=== PATIENT | female | born 1965 | race Caucasian/White ===

== ENCOUNTER 2017-02-17 12:51 | Emergency (ER) | payer MEDICARE, MEDICAID ==
[~2017-02-17] VITALS: Ht 180.3 cm; Wt 100.0 kg
[2017-02-17] MEDS ORDERED: KETOROLAC 30 MG/1 ML IM ONE (14:00)
[2017-02-17] MEDS ORDERED: KETOROLAC 30 MG/1 ML ONE (14:08)
[2017-02-17 14:26] LABS: BLOOD UREA NITROGEN 14 mg/dL (7-18)
[2017-02-17] MEDS ORDERED: OMNIPAQUE 350 MG/ML, 100ML BOTTLE ONE (15:29)
[2017-02-17 15:42] VITALS: BP 128/71
== END 2017-02-17 16:31 | disposition home or self-care (01) ==
LOC: ED 13:39
DX: S39.012A Strain of muscle, fascia and tendon of lower back, initial encounter (principal); M62.830 Muscle spasm of back; I10 Essential (primary) hypertension; Z86.73 Personal history of transient ischemic attack (TIA), and cerebral infarction without residual deficits; X58.XXXA Exposure to other specified factors, initial encounter; Y93.89 Activity, other specified; Y92.89 Other specified places as the place of occurrence of the external cause; Y99.9 Unspecified external cause status
CPT/HCPCS: 36415; 72110; 72193; 80048; 85025; 96372; 99285; J1885; Q9967

== ENCOUNTER 2017-09-19 16:32 | Emergency (ER) | payer MEDICARE, MEDICAID ==
[~2017-09-19] VITALS: Ht 180.3 cm; Wt 103.0 kg
[~2017-09-19 16:32] MED LIST: ASPI-515 PO; GABA600T2 PO; HYDR-3240 PO; IBUP-1223 PO; LAMO200T3 PO; LISI-167 PO; MULTIVITAMIN PO; QUET100T4 PO; SIMV40TA3 PO
[2017-09-19 17:20] LABS: HEMATOCRIT 47.1 % (34.6-47.8); HEMOGLOBIN 16.1 g/dL (11.7-16.4); WHITE BLOOD COUNT 9.2 x10^3/uL (3.4-10)
[2017-09-19 17:27] LABS: ASPARTATE AMINO TRANSFERASE 20 U/L (15-37); BLOOD UREA NITROGEN 13 mg/dL (7-18)
[2017-09-19 17:33] LABS: IS PT STATUS REG ER OR PRE ER? YES
[2017-09-19] MEDS ORDERED: KETOROLAC 30 MG/1 ML IVPush ONE (18:00)
[2017-09-19] MEDS ORDERED: METOCLOPRAMIDE 5 MG/ML, 2ML IVPush ONE (18:00)
[2017-09-19] MEDS ORDERED: SODIUM CHLORIDE 0.9% 1,000ML IVBOLUS ONE (18:00)
[2017-09-19] MEDS ORDERED: DIPHENHYDRAMINE 50 MG/ML, 1ML IVPush ONE (18:00)
[2017-09-19] MEDS ORDERED: SODIUM CHLORIDE FLUSH 10ML SYR IVF ONE (18:00)
[2017-09-19 18:44] VITALS: BP 142/76
== END 2017-09-19 19:15 | disposition home or self-care (01) ==
LOC: ED 17:40
DX: R07.89 Other chest pain (principal); G43.C0 Periodic headache syndromes in child or adult, not intractable; I10 Essential (primary) hypertension; Z90.49 Acquired absence of other specified parts of digestive tract
CPT/HCPCS: 36415; 70450; 71020; 80053; 84484; 85025; 93005; 96361; 96374; 96375; 99285; J1200; J1885; J2765; J7030

== ENCOUNTER 2017-10-02 18:09 | Emergency (ER) | payer MEDICARE, MEDICAID ==
[~2017-10-02] VITALS: Ht 180.3 cm; Wt 104.0 kg
[2017-10-02] MEDS ORDERED: MELO15TA24 PO (18:18)
[2017-10-02] MEDS ORDERED: OXYC-306 PO (18:18)
[2017-10-02] MEDS ORDERED: HYDROmorphone 1 MG/ML, 1ML IM ONE ×2 (19:00→21:30)
[2017-10-02] MEDS ORDERED: HYDROmorphone 2 MG/ML, 1ML ONE ×2 (19:01→21:12)
[2017-10-02] MEDS ORDERED: HYDROmorphone 1 MG/ML, 1ML IVPush ONE (19:30)
[2017-10-02] MEDS ORDERED: HYDROmorphone 2 MG/ML, 1ML IVPush ONE (19:30)
[2017-10-02 20:34] VITALS: BP 104/47
== END 2017-10-02 21:50 | disposition home or self-care (01) ==
LOC: ED 21:47
DX: S32.2XXA Fracture of coccyx, initial encounter for closed fracture (principal); S32.19XA Other fracture of sacrum, initial encounter for closed fracture; I10 Essential (primary) hypertension; Z86.73 Personal history of transient ischemic attack (TIA), and cerebral infarction without residual deficits; W01.0XXA Fall on same level from slipping, tripping and stumbling without subsequent striking against object, initial encounter; Y93.89 Activity, other specified; Y92.89 Other specified places as the place of occurrence of the external cause; Y99.9 Unspecified external cause status
CPT/HCPCS: 72110; 72220; 96374; 99284; J1170

== ENCOUNTER 2018-01-08 19:09 | Emergency (ER) | payer MEDICARE, MEDICAID ==
[~2018-01-08] VITALS: Ht 177.8 cm; Wt 101.6 kg
[~2018-01-08 19:09] MED LIST changes: +MELO15TA24 PO; +OXYC-306 PO
[2018-01-08] MEDS ORDERED: KETOROLAC 30 MG/1 ML ONE (20:18)
[2018-01-08] MEDS ORDERED: methylPREDNISolone SOD SUCC 125 MG/2 ML ONE (20:18)
[2018-01-08] MEDS ORDERED: KETOROLAC 30 MG/1 ML IVPush ONE (20:30)
[2018-01-08] MEDS ORDERED: methylPREDNISolone SOD SUCC 125 MG/2 ML IVPush SCH (20:30)
[2018-01-08 22:07] VITALS: BP 113/65
== END 2018-01-08 22:10 | disposition home or self-care (01) ==
LOC: ED 21:50
DX: M54.6 Pain in thoracic spine (principal); M54.5 Low back pain; G89.29 Other chronic pain; I10 Essential (primary) hypertension; Z90.49 Acquired absence of other specified parts of digestive tract; Z86.73 Personal history of transient ischemic attack (TIA), and cerebral infarction without residual deficits; Z85.41 Personal history of malignant neoplasm of cervix uteri; Z88.2 Allergy status to sulfonamides
CPT/HCPCS: 96374; 96375; 99284; J1885; J2930